=== PATIENT | male | born 1995 | race Caucasian/White ===

== ENCOUNTER 2022-08-01 11:59 | Emergency (ER) | payer OTHER, SELFPAY ==
[2022-08-01 12:00] VITALS: BP 144/96; PULSE 66; RESP 14; TEMP 36.2; O2SAT 99; BMI 25.7
--- NOTE | 2022-08-01 14:50 | EDS_ITS ---
HPI History of Present Illness Chief Complaint: Abscess Detail of Chief Complaint: Right-sided periauricular abscess Informant: patient Onset/Context/Timing Onset: Days Context: Gradual Onset Timing: Continuous Current Severity: Mild Maximum Severity: Mild Narrative Narrative: 27-year-old male from the [facility]. Has a history of right-sided periauricular subcu abscesses that need to be I indeed before. Has 1 again that started on Monday. Denies any fever or chills. He is never followed up with ENT to have formal I&D done because of insurance issues. Prior similar symptoms: Yes Recent Illness/Hospitalization: No PFSH PFSH Medical History no medical history no medical history Home Medications cephalexin 500 mg capsule 500 mg PO Q6 #40 caps 08/01/22 [Rx Last Taken Unknown] cephalexin 500 mg capsule 500 mg PO Q6H 7 days #28 caps 08/01/22 [Rx Last Taken Unknown] Allergy/AdvReac Type Severity Reaction Status Date / Time bee venom protein (honey bee) Allergy Anaphylaxis Verified 08/01/22 12:02 [bee stings] Social History Smoking Status: Current every day smoker tobacco type: cigarettes ROS ROS ED ROS Narrative Denies recent illness. Review of Systems ROS Unobtainable: Denies due to encephalopathy Constitutional Constitutional ED: Denies chills or fever(s) Eyes Eyes: Denies blurry vision ENT ENT ED: Denies ear pain or rhinorrhea Cardiovascular Cardiovascular: Denies chest pain Respiratory/Chest Respiratory/Chest: Denies cough or dyspnea Gastrointestinal Gastrointestinal: Denies abdominal pain Genitourinary Genitourinary ED: Denies dysuria or hematuria Musculoskeletal Musculoskeletal: Denies arthralgias Integumentary Reports abscess; Denies Abrasions or rash Neurologic Neurologic: Denies headache(s) Psychiatric Psychiatric: Denies anxiety Endocrine Endocrinology: Denies cold intolerance Hematologic/Lymphatic Hematologic/Lymphatic: Reports none Allergic/Immunologic Allergic/Immunologic ED: Denies mouth swelling or tongue swelling EXAM Physical Exam Narrative Exam Narrative: Well-appearing 26-year-old male. Vital signs stable afebrile. Patient being seen in triage due to volume and acuity. H EENT exam is very dry. Moist mucous membranes. In front of his right ear and preauricular region there is a subcu abscess approximately inch in the length and 1/2 inch in width. It is tender to palpation. It is fluctuant. Will need I&D. There is no significant cellulitis. Neck nontender no lymphadenopathy. Lungs are clear. Heart regular rhythm no murmur. Abdomen soft nontender. Const Vital Signs: 08/01/22 12:00 08/01/22 16:40 Temperature 97.2 F L Temperature Source Temporal Pulse Rate 66 83 Respiratory Rate 14 18 Blood Pressure 144/96 H 153/95 H Blood Pressure Mean 112 Pulse Ox 99 98 Oxygen Delivery Method Room Air Positive well nourished and well developed; Negative for obese, cachectic or unkempt General Appearance ED: well developed and NAD; Negative for unkempt, cachectic, cyanotic, diaphoretic or pallor Nutritional Appearance: Negative for cachectic or obese HEENT Reports moist mucous membranes; Denies dry mucous membranes HEENT Narrative: Right periauricular subcu abscess. Needs Negative for trauma or tenderness Mouth ED: No dry mucous membranes Mouth: No dry mucous membranes Eyes PERRL and EOMs intact bilaterally General Eye ED: Negative for pale conjunctiva or scleral icterus Neck no lymphadenopathy, supple and no JVD General: Negative for tenderness Lymph Lymphatic: Negative for other Chest Wall inspection of chest normal and palpation of chest normal Chest: Negative for other Resp normal respiratory effort and clear to auscultation bilaterally Effort and Inspection: Negative for retractions Auscultation: Negative for rales, rhonchi or wheezes Cardio regular rate, regular rhythm, S1 normal heart sound, S2 normal heart sound and no murmurs Palpation: Negative for palpable S3 Rate: Negative for bradycardia Rhythm: Negative for abnormal rhythm GI normal to inspection, nondistended, normoactive bowel sounds, non-tender, non- distended and no masses Inspection: Negative for abdominal distention Auscultation: normoactive bowel sounds Palpation: soft; Negative for tender Back/Spine no CVA tenderness General Back: Negative for CVA tenderness Cervical Spine: Negative for cervical spine tenderness Thoracic Spine / Upper Back: Negative for thoracic spinal tenderness Lumbar Spine / Lower Back: Negative for lumbar spinal tenderness Extremity normal to inspection General Extremety ED: Negative for edema or tenderness General Extremity: Negative for edema Neuro oriented x3 Sensorium / Orientation: alert; Negative for orientation impaired Motor Exam: strength 5/5 throughout Psych mental status grossly normal Appearance: Negative for unkempt Attitude: No agitated Mood & Affect: Negative for depressed, anxious or tearful Skin no rashes or lesions noted and no wounds General Skin Exam: elasticity normal; Negative for jaundice or pallor Lesions: No lesion noted Rashes: No rashes noted Trauma: Negative for abrasion Wounds: Negative for wounds noted MDM MDM MDM Narrative Medical decision making narrative: 27-year-old male with a right periauricular subcu abscess in front of his right ear. LET will be applied. Lidocaine. This will be I&D. He will be given a dose of Keflex here. Placed on Keflex for the next 7 days. Instructed to follow-up with ENT. Procedures Other Procedures Procedure(s): Right preauricular subcu abscess. Anesthetized with LET and then subcu lidocaine. Made about a centimeter vertical incision. Expressed about 2 to 3 cc of pus. Patient would not tolerate to allow me to do a bigger incision or to pack it with gauze. He will be discharged home with Keflex 500 4 times daily for 7 days. Follow-up with ENT. Discharge Plan Triage Chief Complaint: Abscess ED Provider: Zachary Abel Dx/Rx/DC Orders Clinical Impression: Abscess, Encounter for incision and drainage procedure Instructions: Abscess Drainage Prescriptions: New cephalexin 500 mg capsule 500 mg PO Q6 Qty: 40 0RF cephalexin 500 mg capsule 500 mg PO Q6H 7 Days Qty: 28 0RF Primary Care Provider: Care Physician,No Primary Referrals: Murphy Rebollar MD [Med Staff - Active Staff] - As soon as possible Activity Restrictions/Additional Instructions: Motrin and Tylenol for pain. Keflex 1 pill 4 times a day for a week. Follow-up with ear nose and throat to have them do a formal incision and drainage. Disposition Disposition: Home, Self Care
[2022-08-01] MEDS: Lidocaine 1% (20 ml mdv) 20 ML Vial 10 ML INFILT (14:55)
[2022-08-01] MEDS: Cephalexin 250 MG Capsule 500 MG PO (14:55)
[2022-08-01] MEDS: Lidocaine/Epi/Tetracaine 50 ML 1 APPLIC TOPICAL (14:56)
[2022-08-01 16:40] VITALS: BP 153/95; PULSE 83; RESP 18; O2SAT 98
[2022-08-01 16:42] VITALS: BP 153/95; PULSE 83; RESP 18; TEMP 36.2; O2SAT 98
== END 2022-08-01 16:50 | disposition home or self-care (01) ==
PROVIDERS: Emergency Provider Emergency Medicine; Visit Provider Emergency Medicine
DX: H60.01 Abscess of right external ear (principal); F17.210 Nicotine dependence, cigarettes, uncomplicated
CPT/HCPCS: 10060; 99284